=== PATIENT | male | born 1985 | race Caucasian/White ===

== ENCOUNTER 2023-03-31 12:50 | Outpatient (CLI) | payer OTHER | END 2023-03-31 23:59 | disposition home or self-care (01) | LOC: RAD 12:50 | PROVIDERS: ATTEND Internal Medicine Infectious Disease | DX: Z11.1 Encounter for screening for respiratory tuberculosis (principal) | CPT/HCPCS: 71046 ==

== ENCOUNTER 2023-08-05 13:01 | Outpatient (CLI) | payer BC ==
[2023-08-05 13:45] LABS: BASOPHILS % (AUTO) 0.4 % (0-1); EOSINOPHILS # (AUTO) 0.1 X10'3 (0-0.9); EOSINOPHILS % (AUTO) 1.6 % (0-6); HEMOGLOBIN 14.5 g/dl (14.0-17.9); LYMPHOCYTES # (AUTO) 2.2 X10'3 (1.1-4.8); LYMPHOCYTES % (AUTO) 29.5 % (21-51); MEAN CORPUSCULAR HEMOGLOBIN 30.7 PG (27.0-31.0); MEAN CORPUSCULAR HGB CONC 34.5 g/dL (33.0-36.5); MEAN PLATELET VOLUME 8.3 FL (7.4-10.4); MONOCYTES # (AUTO) 0.6 X10'3 (0-0.9); MONOCYTES % (AUTO) 7.5 % (2-12); NEUTROPHILS # (AUTO) 4.6 X10'3 (1.8-7.7); PLATELET COUNT 197 X10'3 (140-440); RED BLOOD COUNT 4.72 X10'6 (4.70-6.10); RED CELL DISTRIBUTION WIDTH 12.7 % (11.5-14.5); WHITE BLOOD COUNT 7.6 X10'3 (4.5-11.0)
[2023-08-05 14:01] LABS: ALANINE AMINOTRANSFERASE 23 U/L (12-78); ALBUMIN 3.8 G/DL (3.4-5.0); ALBUMIN/GLOBULIN RATIO 1.1 (1.1-1.5); ALKALINE PHOSPHATASE 80 IU/L (46-116); ANION GAP 8 (8-16); ASPARTATE AMINO TRANSFERASE 13 U/L (10-37); BILIRUBIN,TOTAL 0.4 MG/DL (0.1-1.0); BLOOD UREA NITROGEN 14 MG/DL (7-18); BUN/CREATININE RATIO 12.7 (10.0-20.0); CALCIUM 9.3 MG/DL (8.5-10.1); CHLORIDE 101 MMOL/L (99-107); GLUCOSE 84 MG/DL (70-104); POTASSIUM 3.8 MMOL/L (3.5-5.1); SODIUM 136 MMOL/L (135-145); TOTAL CARBON DIOXIDE 27.1 MMOL/L (24-32); TOTAL PROTEIN 7.3 G/DL (6.4-8.2); eGFR 76 ML/MIN
[2023-08-05 14:11] LABS: CHOL/HDL RATIO 4.9 (0.00-4.99); CHOLESTEROL 187 MG/DL (0-200); HDL CHOLESTEROL 38 MG/DL (35-60); LDL CHOLESTEROL 115 MG/DL (50-100); THYROID STIMULATING HORMONE 1.87 ulU/ml (0.34-4.50); TRIGLYCERIDES 237 MG/DL (20-135)
[2023-08-05 14:28] LABS: HEMOGLOBIN A1C 5.6 % (4.5-6.2)
[2023-08-07 11:04] LABS: TESTOSTERONE, SERUM 199 ng/dL (264-916); VITAMIN D, 25-HYDROXY 32.2 ng/mL (30.0-100.0)
[2023-08-07 11:11] LABS: FOLATE SERUM(FOLIC) 18.3 ng/mL (>3.0)
== END 2023-08-05 23:59 | disposition home or self-care (01) ==
LOC: LAB 13:01
PROVIDERS: ATTEND Physician Assistant
DX: Z20.2 Contact with and (suspected) exposure to infections with a predominantly sexual mode of transmission (principal); R53.83 Other fatigue; G89.29 Other chronic pain; R73.03 Prediabetes; E78.2 Mixed hyperlipidemia; Z76.89 Persons encountering health services in other specified circumstances
CPT/HCPCS: 36415; 80053; 80061; 82306; 82607; 82746; 83036; 84402; 84403; 84439; 84443; 85025; 86592; 87389; 87491

== ENCOUNTER 2023-08-29 14:15 | Outpatient (CLI) | payer BC | END 2023-08-29 23:59 | disposition home or self-care (01) | LOC: RAD 14:15 | PROVIDERS: ATTEND Physician Assistant | DX: M51.17 Intervertebral disc disorders with radiculopathy, lumbosacral region (principal) | CPT/HCPCS: 72148 ==

== ENCOUNTER 2023-11-07 16:16 | Outpatient (CLI) | payer BC | END 2023-11-07 23:59 | disposition home or self-care (01) | LOC: LAB 16:16 | PROVIDERS: ATTEND Physician Assistant | DX: R53.83 Other fatigue (principal) | CPT/HCPCS: 36415; 86618 ==

== ENCOUNTER 2023-12-30 13:07 | Outpatient (CLI) | payer BC ==
[2024-01-02 07:18] LABS: ESTRADIOL 68.1 pg/mL (7.6-42.6); TESTOSTERONE, SERUM 811 ng/dL (264-916); VITAMIN D, 25-HYDROXY 47.8 ng/mL (30.0-100.0)
== END 2023-12-30 23:59 | disposition home or self-care (01) ==
LOC: LAB 13:07
PROVIDERS: ATTEND Physician Assistant
DX: R79.89 Other specified abnormal findings of blood chemistry (principal); E55.9 Vitamin D deficiency, unspecified
CPT/HCPCS: 36415; 82306; 82652; 82670; 84402; 84403

== ENCOUNTER → 2024-03-16 | Outpatient (CLI) | payer BC | END | disposition home or self-care (01) | LOC: RAD 16:14 | PROVIDERS: ATTEND Physician Assistant | DX: N43.2 Other hydrocele (principal); E29.9 Testicular dysfunction, unspecified | CPT/HCPCS: 76870; 93976 ==

== ENCOUNTER 2024-03-19 06:28 | Outpatient (CLI) | payer BC ==
[~2024-03-19 06:28] MED LIST: GADOTERATE MEGLUMINE 7.5 MMOL/15 ML VIAL IV ONE; LIDOcaine 1% (10mg/ml) 2ml vial ONE; LIDOcaine 1% 30ml preserv. free vial ONE; iohexol 300 MG/1 ML 50ml polymer ONE
== END 2024-03-19 23:59 | disposition home or self-care (01) ==
LOC: RAD 06:28
PROVIDERS: ATTEND Anesthesiology Pain Medicine
DX: M25.551 Pain in right hip (principal); M46.1 Sacroiliitis, not elsewhere classified; M54.50 Low back pain, unspecified
CPT/HCPCS: 27093; 73722; 77002; A9575; J3490; Q9967; 73525; A6449